=== PATIENT | female | born 1995 | race Caucasian/White ===

== ENCOUNTER 2022-09-14 15:46 | Outpatient (CLI) | payer BC, SELFPAY ==
--- NOTE | 2022-09-14 16:00 | CRLHL7_ITS ---
For Patients: As a result of the Cures Act, medical imaging exams and procedure reports are released immediately into your electronic medical record. You may view this report before your referring provider. If you have questions, please contact your health care provider. INDICATION: First trimester scan, establish dates. COMPARISON: None. TECHNIQUE: Real-time jerez-scale imaging of the pelvis was performed. FINDINGS: Sonographic imaging demonstrates a single living intrauterine gestation, located within the left horn of the endometrial cavity. The embryo demonstrates a regular cardiac rate measuring 166 beats per minute. The embryo`s crown-rump length measurement of 1.7 cm corresponds to a gestational age of 8 weeks 1 day with a sonographic due date of 04/25/2023. There is a normal-appearing yolk sac. There are no gross abnormalities noted within the embryo at this early state of development. The gestational sac has a normal appearance. There is no evidence of a perigestational hemorrhage. A small amount of fluid is present within the right horn of the endometrial cavity. The amount of fluid within the sac appears appropriate for gestational age. The cervix is closed. The myometrium appears normal. The ovaries are of normal size. Corpus luteal cyst left ovary. There are no suspicious fluid collections noted in the cul-de-sac. IMPRESSION: Single living intrauterine with the gestational sac in the left horn of the endometrial cavity measuring 8 weeks 1 day and sonographic due date of 04/25/2023. Small amount of fluid is present within the right endometrial horn. Dictated by Perico Calabrese MD @ 09/15/2022 9:43:45 AM (Electronically Signed)
== END 2022-09-14 15:47 | disposition home or self-care (01) ==
PROVIDERS: Visit Provider Physician Assistant
DX: Z34.91 Encounter for supervision of normal pregnancy, unspecified, first trimester (principal); Z3A.08 8 weeks gestation of pregnancy
CPT/HCPCS: 76817; 85025; 86703; 86803; 86850; 86900; 86901; 87340; 87491; 87591

== ENCOUNTER 2022-09-14 17:23 | Outpatient (CLI) | payer BC, SELFPAY ==
[2022-09-14 18:08] LABS: Basophils Percent Auto 0.2 % (0.0-3.0); Eosinophils Percent Auto 0.8 % (0.0-7.0); Hematocrit 40.4 % (33.0-51.0); Hemoglobin* 13.6 gm/dL (12.0-16.0); Immature Granulocytes Pct Auto 0.3 %; Lymphocytes Percent Auto 17.8 % (20-44); Mean Corpuscular HGB Conc 34 gm/dL (32-36); Mean Corpuscular Hemoglobin 31 pg (26-34); Mean Corpuscular Volume 91 fL (80-100); Monocytes Percent Auto 8.4 % (0.0-11.0); Neutrophils Percent Auto 72.5 % (42.0-72.0); Platelet Count* 335 K/uL (140-440); RDW Coefficient of Variation % 12.6 % (11.5-15.5); Red Blood Count 4.44 m/uL (4.00-5.20); White Blood Count* 13.73 K/uL (4.50-11.00)
[2022-09-14 18:51] LABS: Slide Review Reflex No
[2022-09-14 20:47] LABS: Hepatitis B Surface Antigen* Negative (Negative)
[2022-09-14 20:55] LABS: HIV 1/2/P24 Combo Screen* Negative (Negative)
[2022-09-14 21:05] LABS: Hepatitis C Virus Antibody* Negative (Negative)
[2022-09-14 21:19] LABS: Chlamydia DNA Amplified* NOT DETECTED (No Detected); GC DNA Amplified* NOT DETECTED (No Detected)
[2022-09-17 04:41] LABS: Rapid Plasma Reagin (RPR) Non Reactive (Non Reactive)
[2022-09-17 08:02] LABS: Rubella Antibody IgG 63.4 IU/mL; Varicella-Zoster Virus Ab, IgG 851.7 IV
== END 2022-09-14 17:24 | disposition home or self-care (01) ==
PROVIDERS: Visit Provider Physician Assistant
DX: Z34.91 Encounter for supervision of normal pregnancy, unspecified, first trimester (principal); Z3A.08 8 weeks gestation of pregnancy
CPT/HCPCS: 85025; 86592; 86703; 86762; 86787; 86803; 86850; 86900; 86901; 87086; 87340; 87491; 87591

== ENCOUNTER 2022-10-29 15:25 | Outpatient (CLI) | payer BC, SELFPAY | END 2022-10-29 15:26 | disposition home or self-care (01) | PROVIDERS: Visit Provider Obstetrics & Gynecology | DX: R39.9 Unspecified symptoms and signs involving the genitourinary system (principal) | CPT/HCPCS: 87086 ==

== ENCOUNTER 2022-11-24 16:12 | Outpatient (CLI) | payer BC, SELFPAY | END 2022-11-24 16:13 | disposition home or self-care (01) | LOC: NFLDREF 11-27 10:28 | PROVIDERS: Visit Provider Obstetrics & Gynecology | DX: R39.9 Unspecified symptoms and signs involving the genitourinary system (principal) | CPT/HCPCS: 87086 ==

== ENCOUNTER 2022-12-08 13:58 | Outpatient (CLI) | payer BC, SELFPAY ==
--- NOTE | 2022-12-08 14:00 | CRLHL7_ITS ---
For Patients: As a result of the Century Cures Act, medical imaging exams and procedure reports are released immediately into your electronic medical record. You may view this report before your referring provider. If you have questions, please contact your health care provider. HISTORY: anatomic survey. COMPARISON: None available of this gestation. TECHNIQUE: Ultrasound examination of the is performed with transabdominal technique. FINDINGS: A single intrauterine gestation is seen in cephalic presentation with regular cardiac activity at 144 beats per minute. The placenta is fundal and is free of the cervical os. The placental grade is 0 and the amniotic fluid volume is normal. Single deepest vertical pocket: Normal at 5.2 cm. The cervix is nondilated and normal in length at 3.7 centimeters. BPD: 5.1 cm 21 weeks 3 days HC: 18.6 cm 21 weeks 0 days AC: 15.4 cm 20 weeks 4 days FL: 3.1 cm 19 weeks 4 days The estimated age by ultrasound is 20 weeks 5 days, with an estimated date of delivery of 04/22/2023. This correlates well with the clinical age of 20 weeks 2 days. The ultrasound ratios are normal. The estimated weight of 340 grams is at the 42nd percentile based on the clinical dates. The anatomic survey demonstrates normal appearing intracranial structures with a normal septum pellucidum and normal cerebellum. The nuchal thickness is normal at 4 mm, and the lateral ventricle is normal in diameter at 4 mm. The upper lip, 4 chamber heart, left and right ventricular outflow tracts, diaphragm, stomach, cord insertion site, 3-vessel cord, kidneys, bladder and spine are normal in appearance. IMPRESSION: Single intrauterine gestation in cephalic presentation with regular cardiac activity. Estimated gestational age is 20 weeks 5 days. Dictated by Ton Montelongo MD @ 12/08/2022 8:39:48 PM (Electronically Signed)
== END 2022-12-08 13:59 | disposition home or self-care (01) ==
LOC: US 13:58
PROVIDERS: Visit Provider Obstetrics & Gynecology
DX: Z34.92 Encounter for supervision of normal pregnancy, unspecified, second trimester (principal); Z3A.20 20 weeks gestation of pregnancy
CPT/HCPCS: 76805

== ENCOUNTER 2022-12-14 11:25 | Outpatient (CLI) | payer BC, SELFPAY | END 2022-12-14 11:26 | disposition home or self-care (01) | LOC: NFLDREF 12-15 00:33 | PROVIDERS: Visit Provider Physician Assistant | DX: R35.0 Frequency of micturition (principal); N89.8 Other specified noninflammatory disorders of vagina; N39.0 Urinary tract infection, site not specified | CPT/HCPCS: 87086 ==

== ENCOUNTER 2023-01-18 12:55 | Outpatient (CLI) | payer BC, SELFPAY | END 2023-01-18 12:56 | disposition home or self-care (01) | LOC: NFLDREF 12:56 | PROVIDERS: Visit Provider Obstetrics & Gynecology | DX: R30.0 Dysuria (principal); R35.0 Frequency of micturition | CPT/HCPCS: 87086 ==

== ENCOUNTER 2023-02-08 15:51 | Outpatient (CLI) | payer BC, SELFPAY | END 2023-02-08 15:52 | disposition home or self-care (01) | LOC: NFLDREF 02-10 12:47 | PROVIDERS: Visit Provider Obstetrics & Gynecology | DX: Z34.93 Encounter for supervision of normal pregnancy, unspecified, third trimester (principal); Z3A.29 29 weeks gestation of pregnancy | CPT/HCPCS: 86592 ==

== ENCOUNTER 2023-02-25 17:24 | Outpatient (CLI) | payer BC, SELFPAY ==
[2023-02-25 17:37] VITALS: BP 116/82; PULSE 84; PULSE 92; O2SAT 100
[2023-02-25 17:38] VITALS: BP 116/82; PULSE 76; RESP 16; TEMP 36.6; O2SAT 100
[2023-02-25 17:42] VITALS: PULSE 97; O2SAT 100
--- NOTE | 2023-02-25 17:53 | CRLHL7_ITS ---
For Patients: As a result of the Century Cures Act, medical imaging exams and procedure reports are released immediately into your electronic medical record. You may view this report before your referring provider. If you have questions, please contact your health care provider. CLINICAL HISTORY: Cervical length check TECHNIQUE: Real time jerez scale imaging performed. FINDINGS/impression: Endovaginal imaging demonstrates cervical length measures 4.5 centimeters. Cervix is closed. No funneling. Dictated by Ines Verde MD @ 02/25/2023 8:28:36 PM (Electronically Signed)
[2023-02-25 17:59] LABS: Appearance Urine Cloudy (Clear); Bilirubin Urine Negative (Negative); Blood Urine 3+ (Negative); Color Urine Yellow (Yellow); Glucose Urine Negative (Negative); Ketones Urine Trace (Negative); Leukocyte Esterase Urine 3+ (Negative); Nitrite Urine Negative (Negative); Protein Urine Trace (Negative); Urobilinogen Urine 0.2 (0.2-1.0); pH Urine 7.5 (5.0-8.5)
[2023-02-25] MEDS: LACTATED RINGERS 1000 ML 1,000 ML IV (18:28)
[2023-02-25 18:33] LABS: Bacteria Urine Few; Squamous Epithelial Cell Urine Few (None-Few)
[2023-02-25 18:33] LABS: Trichomonas No Trichomonas Seen (None Seen); Yeast No Yeast Seen (None Seen)
[2023-02-25 18:34] LABS: Clue Cells <20% Clue Cells Seen (None Seen)
[2023-02-25 18:36] LABS: Fetal Fibronectin* Negative (Negative)
[2023-02-25] MEDS: NITROFURANTOIN MONOHYD MACRO 100 MG CAPSULE PO (19:45)
--- NOTE | 2023-02-25 20:06 | PC.OBNST ---
NST Note NST Note Start: 02/25/23 17:30 Freq: ONCE Status: Active Protocol: Document 02/25/23 19:45 LP (Rec: 02/25/23 19:53 LP [id number]) NST Note 1 Para (# of births) 0 EDC 04/25/23 Gestational Age In Weeks & Days 31 Weeks & 4 Days Patient Presented with Complaint(s) of Contractions/cramping, Decreased movement,Pain If Pain, describe location low back pain Other Complaints increased vaginal discharge Reactive Yes Appropriate for Gestational Age Yes MARVA Baig, RN Date 02/25/23 Reactive Yes Appropriate for Gestational Age Yes MARVA Ramírez RN Date 02/25/23 OB NST charge Yes Complete NST Note via Write Note Yes The provider's electronic signature indicates the NST is reactive/appropriate for gestational age. *Note to provider: If an addendum is required, open the patient's chart and click on the note under the Nurse/Allied Health tab.
--- NOTE | 2023-03-21 14:02 | PC.OBNST ---
NST Note NST Note Start: 02/25/23 17:30 Freq: ONCE Status: Discharge Protocol: Document 02/25/23 19:45 LP (Rec: 02/25/23 19:53 LP [id number]) NST Note 1 Para (# of births) 0 EDC 04/25/23 Gestational Age In Weeks & Days 31 Weeks & 4 Days Patient Presented with Complaint(s) of Contractions/cramping, Decreased movement,Pain If Pain, describe location low back pain Other Complaints increased vaginal discharge Reactive Yes Appropriate for Gestational Age Yes MARVA Baig, RN Date 02/25/23 Reactive Yes Appropriate for Gestational Age Yes MARVA Ramírez RN Date 02/25/23 OB NST charge Yes Complete NST Note via Write Note Yes The provider's electronic signature indicates the NST is reactive/appropriate for gestational age. *Note to provider: If an addendum is required, open the patient's chart and click on the note under the Nurse/Allied Health tab.
== END 2023-02-25 19:50 | disposition home or self-care (01) ==
LOC: OB OUT 17:25 → OB 17:26
PROVIDERS: Visit Provider Obstetrics & Gynecology
DX: Z34.90 Encounter for supervision of normal pregnancy, unspecified, unspecified trimester (principal)
CPT/HCPCS: 59025; 76815; 76817; 81003; 81015; 84112; 87086; 87210; 99213; A9270; J7120

== ENCOUNTER 2023-03-22 15:07 | Outpatient (CLI) | payer BC, SELFPAY ==
[2023-03-23 15:29] LABS: Strep B DNA Probe Positive (Negative); Strep B Susceptibility Needed? No
== END 2023-03-22 15:08 | disposition home or self-care (01) ==
LOC: NFLDREF 15:10
PROVIDERS: Visit Provider Obstetrics & Gynecology
DX: Z34.93 Encounter for supervision of normal pregnancy, unspecified, third trimester (principal)
CPT/HCPCS: 87081; 87653

== ENCOUNTER 2023-04-13 11:59 | Inpatient (IN) | payer BC, SELFPAY ==
[2023-04-13] VITALS (28 sets, daily range): BP systolic 98–139; BP diastolic 65–94; PULSE 61–100; RESP 16; TEMP 36.4–37.3; O2SAT 96–100
[2023-04-13 10:07] LABS: Amnisure Rom* Negative
--- NOTE | 2023-04-13 11:20 | P.OBLDTN_ITS ---
OB - Triage/Final Diagnosis Visit Information Time Seen by Provider: 11:00 Narrative: The patient is a 27 year old 1 para 0 at 38w2d gestation by first- trimester ultrasound, who presents with uterine contractions. course is complicated by depression and anxiety, migraine headaches and GERD. Cassie notes onset of regular/painful uterine contractions at 7:30 a.m. this morning. At present they are occurring every 5-7 minutes, rated as 9/10 in severity when sitting but 7-8 when standing. She notes blood tinged discharge this morning, no vandana vaginal bleeding. Small volume leaking noted as well, AmniSure negative. She endorses active movement. She is otherwise in her normal state of health with negative review of systems. Evaluation Cervical dilation (cm): 2 Cervical effacement (%): 50 Laboratory results: Laboratory Tests 04/13/23 Range/Units Unknown Membrane Rupture Negative Vital signs: Vital Signs - 24 hr 04/13/23 10:10 04/13/23 10:11 04/13/23 10:11 Temperature 98.7 F Pulse Rate 94 100 Respiratory Rate 16 Blood Pressure 139/94 H 127/80 Comments: General: Alert and oriented, in no acute distress. Standing at bedside. Psych: Appropriate mood and affect Abdomen: Transabdominal ultrasound performed given nursing report of heart tones higher in the maternal abdomen than expected and inability to palpate head on RN cervical check. Ultrasound confirms complete breech malpresentation. heart tones: Reactive NST. Baseline of 130 beats per minute, moderate variability, accelerations present. No decelerations. [place]: Contractions occurring every 3-6 minutes or so. Final Diagnosis (1) Malpresentation of fetus, antepartum: Status: Acute Problem details: Ms. Alarcon is a 27yo at 38w2d GA seen in triage for rule out labor and question of ROM. course is complicated by depression, anxiety, migraines, Raynaud's, GERD and history of recurrent UTI (none in ). On arrival, she was found to be 2/50/-3 by RN exam with inability to palpate head. Bedside US performed, confirming complete breech malpresentation. We discussed options for management including external cephalic version today versus primary delivery. If she elects to proceed with , we reviewed that we would proceed today if her cervix demonstrates change on repeat evaluation. In the absence of cervical change, we discussed that we would plan for primary delivery at 39 weeks with strict return precautions. The risks and benefits of each option in depth. Pending this discussion, Cassie has decided to proceed with [].
--- NOTE | 2023-04-13 12:13 | P.OBHP_ITS ---
OB - H&P: HPI History of Present Illness Chief complaint: Maternity : 1 Para: 0 Narrative: The patient is a 27 year old 1 para 0 at 38w2d gestation by first- trimester ultrasound, who presents with uterine contractions and rule out rupture. course is complicated by depression and anxiety, migraine headaches and GERD. Cassie notes onset of regular/painful uterine contractions at 7:30 a.m. this morning. At present they are occurring every 5-7 minutes, rated as 9/10 in severity when sitting but 7-8 when standing. They have increased in frequency and severity since their onset. She notes blood tinged discharge this morning, no vandana vaginal bleeding. Singel episode small volume leaking occuring this morning as well, thin/clear fluid after standing up from voiding. No ongoing leaking, AmniSure negative. She endorses active movement. She is otherwise in her normal state of health with negative review of systems. Specific Issues/Plans CGM: My concern is her increased risk for UTIs/pyelo and if we should consider prophylactic antibiotics at a lower daily dose. We should discuss this with patient at her next scheduled visit DISCUSSED 03/08/2023 1. Depression and anxiety * Doing well on fluoxetine 20 mg 2. History of kidney stones. History of lithotripsy and stent placement May 2021 3. Migraines Freq headaches 01/11: Recommend magnesium supplement 4. History of recurrent UTIs ( 5 per year) UTI at approximately 12 weeks, treated [facility] with nitrofurantoin 5. Heartburn Not responding to famotidine BID 01/11: omeprazole 20 mg 02/08: Reported 3 week history of dry cough, worse with lying down. No proceeding or current illness symptoms. Increased omeprazole to 40 mg 6. Labor and delivery eval for cramping and back pain. Concern for possible stone. CGM recommend discussing low-dose prophylactic antibiotics secondary history of kidney stones and recurrent UTIs. Discussed on 03/08/2023. Will start nitrofurantoin 100mg qd 7. GBS positive. * GBS prophylaxis in labor Flu shot: 01/11 Covid: 02/08/23 Tdap: 02/22/23 RSV: 03/08/23 H&P: 04/05/[address] Ratliff History of Present Dating criteria: based on 1st trimester US only care: good care PFSH PFSH Medical History History of kidney stones ?Z87.442 - Personal history of urinary calculi (ICD-10) Absence seizure ?G40.A09 - Absence epileptic syndrome, not intractable, without status epilepticus (ICD-10) Migraine headache ?G43.909 - Migraine, unspecified, not intractable, without status migrainosus (ICD-10) Surgical History History of lithotripsy ?Z98.890 - Other specified postprocedural states (ICD-10) History of ureteroscopy ?Z98.890 - Other specified postprocedural states (ICD-10) Social History Smoking Status: Never smoker Little interest or pleasure in doing things: not at all Feeling down, depressed, or hopeless: not at all Meds Home Medications and Allergies Home Medications Medication Instructions Recorded Confirmed Type docosahexaenoic acid 200 mg mg PO 09/14/22 04/12/23 History capsule ( [facility]HA) sumatriptan succinate 100 mg tablet 100 mg PO ONCE PRN 09/14/22 04/13/23 History Allergies Allergy/AdvReac Type Severity Reaction Status Date / Time No Known Drug Allergies Allergy Verified 04/13/23 10:07 OB - H&P: Exam Physical Exam: Vital signs: Temp Pulse Resp BP 98.7 F 100 16 127/80 04/13/23 10:11 04/13/23 10:11 04/13/23 10:11 04/13/23 10:11 Narrative: General: Alert and oriented, in no acute distress. Standing at bedside. Psych: Appropriate mood and affect Heart: Regular rate and rhythm, no rubs murmurs or gallops Lungs: Clear to posterior auscultation Abdomen: Transabdominal ultrasound performed given nursing report of heart tones higher in the maternal abdomen than expected and inability to palpate head on RN cervical check. Ultrasound confirms complete breech malpresentation. heart tones: Reactive NST. Baseline of 130 beats per minute, moderate variability, accelerations present. No decelerations. [place]: Contractions occurring every 3-6 minutes or so. Sterile vaginal exam: By RN was 2/50/-3 initially, two hour recheck by myself is 3/70/-1. Assessment and Plan Assessment and plan (1) Malpresentation of fetus, antepartum: Problem comment: Ms. Alarcon is a 27yo at 38w2d GA seen in triage for rule out labor and question of ROM. course is complicated by depression, anxiety, migraines, Raynaud's, GERD and history of recurrent UTI (none in ). On arrival, she was found to be 2/50/-3 by RN exam with inability to palpate head. Bedside US performed, confirming complete breech malpresentation. We discussed options for management including external cephalic version today versus primary delivery. If she elects to proceed with , we reviewed that we would proceed today if her cervix demonstrates change on repeat evaluation. In the absence of cervical change, we discussed that we would plan for primary delivery at 39 weeks with strict return precautions. The risks and benefits of each option in depth. Pending this discussion, Cassie has decided to proceed with []. Status: Acute (2) : Status: Acute (3) Nausea and vomiting during : Status: Acute (4) Raynaud phenomenon: Status: Acute (5) Depression with anxiety: Status: Acute (6) Migraine headache: Status: Chronic Plan Ms. Alarcon is a 27yo at 38w2d GA seen in triage for rule out labor and question of ROM. course is complicated by depression, anxiety, migraines, Raynaud's, GERD and history of recurrent UTI (none in ). On arrival, she was found to be 2/50/-3 by RN exam with inability to palpate head. Bedside US performed, confirming complete breech malpresentation. We discussed options for management including external cephalic version today versus primary delivery. If she elects to proceed with , we reviewed that we would proceed today if her cervix demonstrates change on repeat evaluation. In the absence of cervical change, we discussed that we would plan for primary delivery at 39 weeks with strict return precautions. The risks and benefits of each option in depth. Pending this discussion, Cassie has decided to proceed with primary delivery. At 1145 a repeat sterile vag inal exam performed, with demonstrable cervical change to 3/70/-1. Plan to proceed with primary delivery today. Discussion of risks/benefits and alternatives reviewed, where written consent was subsequently obtained. Last PO intake at 0730, discussed my recommendation to proceed with now rather than awaiting NPO status in the setting of spontaneous labor with breech malpresentation. - Primary delivery now - Perioperative ancef and azithromycin - Obtain T/S and Hgb - BT O+, GBS negative
[2023-04-13] MEDS: LACTATED RINGERS 1000 ML 1,000 ML IV (12:23)
[2023-04-13] MEDS: AZITHROMYCIN 500 MG in 0.9 % SODIUM CHLORIDE 250 ml 250 ML 255 MG IVPB (12:27)
[2023-04-13 12:29] LABS: Hematocrit 39.6 % (33.0-51.0); Hemoglobin* 12.9 gm/dL (12.0-16.0); Mean Corpuscular HGB Conc 33 gm/dL (32-36); Mean Corpuscular Hemoglobin 29 pg (26-34); Mean Corpuscular Volume 89 fL (80-100); Platelet Count* 263 K/uL (140-440); Red Blood Count 4.43 m/uL (4.00-5.20); White Blood Count* 14.44 K/uL (4.50-11.00)
[2023-04-13 12:34] LABS: Slide Review Reflex No
[2023-04-13] MEDS: CEFAZOLIN 2 GM INJ IVP (12:49)
--- NOTE | 2023-04-13 12:55 | W.ANESCHARGE ---
Anesthesia Charges Start Date/Time Anesthesia Start Date: 04/13/23 Anesthesia Start Time: 12:43 Stop Date/Time Anesthesia Stop Date: 04/13/23 Anesthesia Stop Time: 14:00 Summary Emergency: MDA
[2023-04-13] MEDS: KETOROLAC 30 MG/ML inj IVP ×2 (13:39→19:52)
--- NOTE | 2023-04-13 13:39 | W.ANESCHARGE ---
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
--- NOTE | 2023-04-13 14:06 | W.PM.NB ---
Nerve Block Nerve Block Time Seen by Provider: 13:45 Date Seen: 04/13/23 Type of block requested by surgeon for post-operative analgesia: TAP Side: bilateral Time out performed: Yes Verification of patient name: Yes Verification of date of : Yes Site marking: site marked Name of person performing procedure: Von Assistants, if any: Abilio Continuous monitoring Was continuous monitoring of O2 sat, B/P, tunnel kiln operator, recorded every 15 minutes?: Yes Procedure Checklist: sterile prep, needles and gloves Ultrasound guided. Images saved: Yes Medications given in 5ml increments after negative aspiration: Marcaine %: 0.25 mL: 30 Needle gauge: 20 and Exparel mL: 10 Patient tolerated procedure well: Yes Additional comments: Needle noted between internal oblique and transversus abdominus. Local spread visualized Block Charges Block Charge (with Pro Fee): TAP Bilateral Use of Ultrasound Machine for Block: Yes- US Guidance/pain block
--- NOTE | 2023-04-13 14:50 | PM.OBPRCCS ---
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 She received cefazolin and azithromycin in preoperative prophylaxis. Spinal anesthesia was administered. Jenkins catheter was inserted. She was prepped and draped in the usual sterile fashion. Anesthesia was tested and found to be adequate. A low-transverse skin incision was made with a scalpel and carried through to the underlying layer of fascia with the scalpel. The subcutaneous fat was dissected off the underlying fascia with Bovie. The fascia was nicked in the midline with a scalpel, and this incision was extended laterally with scissors. The rectus muscles were in the midline. Peritoneum was identified and entered bluntly. Bovie was used to widen this opening laterally. Chao O retractor was inserted and tightened down, providing excellent visualization of the lower uterine segment. The bladder flap was advanced along the lower uterine segment. A bladder flap was created with a combination of sharp and blunt dissection. Low-transverse uterine incision was made with a scalpel. Incision was widened bluntly. The infant's breech was grasped through the hysterotomy and delivered with the help of fundal pressure. The remainder of the body delivered without incident. Loose nuchal cord was noted, delivered through. Cord was clamped and cut after 30 seconds. was handed off to attending nurses. The placenta was delivered with gentle traction on the cord. The uterus was cleaned of all clots and debris with the dry lap pad. 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 The hysterotomy was reapproximated with 0 Vicryl in a running, locked fashion. Second layer of the same suture was used in imbricating fashion to obtain hemostasis. After closure, the uteri were examined in detail where again the left horn was noted to be the gravid uterus with a normal round ligament, fallopian tube and ovary off of it. At the level of the left lower uterine segment, there was an adjacent right nongravid uterus versus rudimentary horn. The right horn was noted to also have an unremarkable round ligament, fallopian tube and ovary. I was unable to establish whether not a cervix was present with the right rudimentary horn at time of surgery. Uterus was reinserted. Excellent hemostasis was noted across hysterotomy and bladder flap. The cul-de-sac and gutters were cleansed with dampened laparotomy sponge, removing any further clots and debris. The Chao O retractor was removed. The hysterotomy was reexamined and found to be hemostatic. The rectus muscles were examined and found to be hemostatic. The fascia was reapproximated with 0 Vicryl in a running fashion. Subcutaneous fat was irrigated and Bovie used on oozing vessels. The skin was closed with a subcuticular stitch of 3-0 Monocryl. Surgical glue was applied above this. Patient tolerated procedure well was taken to recovery area in stable condition. details: Male sex APGARs 8 and 9 at 1 and 5 minutes respectively Condition: stable Disposition: floor
[2023-04-13] MEDS: ONDANSETRON 2 MG/ML inj 4 MG IVP (15:59)
[2023-04-13] MEDS: ACETAMINOPHEN 500 MG TABLET 1000 MG PO (16:01)
[2023-04-13] MEDS: diphenhydrAMINE 50 MG/ML inj 12.5 MG IVP (16:38)
[2023-04-14] VITALS (17 sets, daily range): BP systolic 105–126; BP diastolic 71–79; PULSE 67–94; RESP 16–17; TEMP 36.8–37; O2SAT 96–98
[2023-04-14] MEDS: KETOROLAC 30 MG/ML inj IVP ×4 (01:56→19:58)
[2023-04-14 06:31] LABS: Hemoglobin* 10.1 gm/dL (12.0-16.0)
--- NOTE | 2023-04-14 07:24 | PM.OBPNVD1 ---
OB - PN:Subj Subjective Time Seen by Provider: 07: Date Seen: 04/14/23 Interval history: Cassie is a 27 y.o. who arrived to [facility] in early labor. found to be breech, and decision made to proceed with a .? She had an uncomplicated primary .? ? ? Narrative: The patient feels well.? The pain is fairly well controlled with current medications.? She has no new complaints.? She is exclusively pumping by choice and reports things are going well.? the patient has done well.? Vitals have been stable.? She has remained afebrile.? Has a good appetite, is tolerating a general diet.? She is voiding without difficulty.? She is passing gas and has not had a bowel movement.? She is ambulating and denies any dizziness.? Has Small amount of rubra lochia.? OB - PN: Obj Exam Physical Exam: Vital signs: Temp Pulse Resp BP Pulse Ox O2 Del Method 98.6 F 67 16 115/75 96 Room Air 04/14/23 04:09 04/14/23 04:09 04/14/23 06:00 04/14/23 04:09 04/13/23 23:58 04/14/23 04:09 Narrative: VSS.? Afebrile? GENERAL APPEARANCE:? normal affect, alert, no distress? MOOD:? appropriate? HEENT: normocephalic, neck supple, full ROM? CHEST:? Symmetrical chest wall movement.? Normal respiratory effort.? Clear to auscultation? HEART:? regular rate and rhythm? ABDOMEN:? soft, non-tender. Uterine fundus is firm, 2 below Umbilicus, Midline and is appropriate for the stage of recovery.? Bowel sounds present.? EXTREMITIES:? normal and no edema? SKIN: warm, dry.? Dressing on, clean/dry/intact.? No signs of infection noted.? Urinary Catheter Management: hall: Cath placed during this visit: yes, but has since been removed by the nurse Reason for continuing: surgical procedure Insertion date: 04/13/23 Insertion time: 12:54 Removal date: 04/13/23 Removal time: 20:35 OB - PN: Obj Data Labs Labs: Laboratory Results - last 24 hr 04/13/23 04/13/23 04/13/23 12:17 12:17 Unknown WBC 14.44 H RBC 4.43 Hgb Cancelled 12.9 Hct 39.6 MCV 89 MCH 29 MCHC 33 Plt Count 263 Membrane Rupture Negative Blood Type O Positive Antibody Screen NEGATIVE 04/14/23 06:15 WBC RBC Hgb 10.1 L Hct MCV MCH MCHC Plt Count Membrane Rupture Blood Type Antibody Screen OB - PN: A/P Delivery Assessment and Plan (1) Status post primary low transverse section: Status: Acute (2) Lactating mother: Problem details: exclusively pumping per preference Status: Acute (3) Malpresentation of fetus, antepartum: Status: Acute (4) Raynaud phenomenon: Status: Acute (5) Depression with anxiety: Status: Acute (6) Migraine headache: Status: Chronic Plan Comments: Assessment/Plan? G 1 P 1 status post uncomplicated primary .? ?? 1.? Continue route PP cares? 2.? Exclusively pumping per her preference.? May see if desired. 3.? Anticipate discharge home tomorrow or the following day per pt preference? ?
[2023-04-14] MEDS: DOCUSATE SODIUM 100 MG CAPSULE PO (08:04)
[2023-04-14] MEDS: ACETAMINOPHEN 500 MG TABLET 1000 MG PO ×2 (13:06→21:36)
[2023-04-14] MEDS: SIMETHICONE 80 MG TAB.CHEW PO (13:06)
[2023-04-15 00:52] VITALS: BP 127/85; PULSE 76; RESP 16; TEMP 36.8; O2SAT 99
[2023-04-15] MEDS: IBUPROFEN 600 MG TABLET PO ×2 (00:58→08:10)
[2023-04-15] MEDS: ACETAMINOPHEN 500 MG TABLET 1000 MG PO (04:26)
[2023-04-15 08:00] VITALS: BP 121/82; PULSE 80; RESP 16; TEMP 36.7; O2SAT 97
[2023-04-15] MEDS: DOCUSATE SODIUM 100 MG CAPSULE PO (08:10)
--- NOTE | 2023-04-15 10:14 | P.DS_ITS ---
DS: Providers Provider Date Seen: 04/15/23 Date of admission: 04/13/23 11:59 Primary care physician: Not a Local Provider Admitting Clinician: Tangela Judd MD Attending Physician on discharge: rTacy Tran CNM Date of Discharge: 04/15/23 DS: Diagnosis Discharge Diagnosis (1) care and examination immediately after delivery: Status: Acute (2) Lactating mother: Status: Acute Problem details: exclusively pumping per preference (3) Status post primary low transverse section: Status: Acute Exam Narrative: Exam Narrative: GENERAL APPEARANCE:? normal affect, alert, no distress MOOD:? appropriate CHEST:? clear to auscultation HEART:? regular rate and rhythm ABDOMEN:? soft, non-tender the uterine fundus is At Umbilicus, Midline and is appropriate for the stage of recovery. PERINEUM:? intact EXTREMITIES:? normal and no edema Incision: Healing well, no surrounding erythema, abnormal induration or discharge Const: Vital Signs, click to edit/add: Vital Signs - 24 hr 04/14/23 11:00 04/14/23 12:00 04/14/23 13:01 Temperature 98.3 F Pulse Rate [Pulse Oximeter] 94 Respiratory Rate 16 16 16 Blood Pressure [Ri ght Arm] 105/71 Pulse Oximetry 96 Oxygen Delivery Me thod Room Air 04/14/23 17:59 04/15/23 00:52 04/15/23 08:00 Temperature 98.4 F 98.3 F 98.0 F Pulse Rate [Pulse Oximeter] 84 76 80 Respiratory Rate 16 16 16 Blood Pressure [Ri ght Arm] 113/77 127/85 121/82 Pulse Oximetry 96 99 97 Oxygen Delivery Me thod Room Air Room Air Room Air Documenting provider has reviewed patient's vital signs: yes OB - DS: Summary Hospital Course Hospital Course: Cassie is a 27 y.o. who was admitted to [facility] for labor. ?She had an uncomplicated .?The patient feels well. ?The pain is well controlled with current medications. ?She has no new complaints. ?She is exclusively pumping by her choice and reports things are going well.? the patient has done well.? Vitals have been stable.? She has remained afebrile.? Has a good appetite, is tolerating a general diet. ?She is voiding without difficulty.? She is passing gas and has had a bowel movement.? She is ambulating and denies any dizziness.? Has Small amount of rubra lochia. ?She is planning possibly the Nexplanon for prevention. Peripartum Data delivery method: Primary C/S; Labored Laceration description: None Procedures: Procedures Operation Date: 04/13/23 12:45 Actual Procedure Side Surgeon p Section Tangela Judd MD complications: none Gender: Male Infant Discharge Plan: Home Status at Discharge Functional status at discharge: independent ambulation Overall status at discharge: patient is progressing back to baseline Time Spent with Patient Time attestation: Total time spent providing and/or coordinating discharge services: Time spent: Less than 30 minutes Discharge Plan Discharge Disposition: Home, Self-Care Date of Admission: 04/13/23 11:59 Attending Provider on Discharge: Tracy Tran Primary Care Provider: Provider,Not a Local Condition: Stable Anticipated Discharge Date/Time: 04/15/23 10:00 Discharge Medications: New docusate sodium 100 mg Capsule 100 mg PO DAILY Qty: 90 2RF ibuprofen 600 mg Tablet 600 mg PO Q6H PRN (Reason: Pain) Qty: 60 0RF oxycodone 5 mg Tablet 5 - 10 mg PO Q4H PRN (Reason: Pain) Qty: 10 0RF acetaminophen 500 mg Tablet 1,000 mg PO Q6H PRN (Reason: Pain) Qty: 0 0RF Continued DHA 200 mg capsule PO sumatriptan succinate 100 mg tablet 100 mg PO ONCE PRN omeprazole 40 mg capsule,delayed release(DR/EC) 40 mg PO QDAY Qty: 90 2RF nitrofurantoin macrocrystal 100 mg capsule 100 mg PO QHS Qty: 60 0RF Rx Instructions: must administer with a meal/food Discontinued ondansetron 4 mg tablet,disintegrating 4 mg PO Q6H PRN (Reason: nausea and vomiting) Qty: 30 0RF Discharge Orders: Discharge Order (Routine); Ordered 04/15/23 Ordered By: Tracy Tran Patient Education: OB Over the Counter Medication Information, OB /Breast Feeding Additional Instructions: Discharge instructions were reviewed with the patient including signs and symptoms of infection and home going medications Lifting Restrictions: 20 pounds for 6 weeks No not submerge incision under water X 2 weeks? Nothing vaginally for 6 weeks: no tampons or intercourse Do not drive while taking narcotic pain medication(s) Off Work or School for 6 weeks 2-week visit: incision check, discuss infant feeding concerns, review control options and screen for anxiety/depression. 6-week visit for an annual exam. Follow up Production Planning Supervisor appointment after 6 weeks to assess uterine anomaly further. consultation services are available to all mothers and babies for the first year after delivery.? To make an appointment, please call [phone]. Activity Level: Activity as Tolerated Discharge Diet: Regular Follow Up Appointments: [facility] [Provider Group] Provider,Not a Local [Primary Care Provider] - Forms: Properati Info Instructions
== END 2023-04-15 11:30 | disposition home or self-care (01) | DRG 540 ==
LOC: OB OUT 11:59 → OB 11:59
PROVIDERS: Admitting Provider Obstetrics & Gynecology; Visit Provider Obstetrics & Gynecology
PROC: 10D00Z1 Extraction of Products of Conception, Low, Open Approach (ICD-10-PCS; CPT 59514; principal; 2023-04-13 12:30)
DX: O32.1XX0 Maternal care for breech presentation, not applicable or unspecified (principal); O99.824 Streptococcus B carrier state complicating childbirth; O99.344 Other mental disorders complicating childbirth; F41.8 Other specified anxiety disorders; O26.899 Other specified pregnancy related conditions, unspecified trimester; I73.00 Raynaud's syndrome without gangrene; G43.909 Migraine, unspecified, not intractable, without status migrainosus; R12 Heartburn; G89.18 Other acute postprocedural pain; K21.9 Gastro-esophageal reflux disease without esophagitis; Z87.440 Personal history of urinary (tract) infections; Z87.442 Personal history of urinary calculi; Z3A.38 38 weeks gestation of pregnancy; Z37.0 Single live birth
CPT/HCPCS: 01961; 36415; 59025; 64488; 76942; 81003; 81015; 84112; 85018; 85027; 86850; 86900; 86901; 87086; 99140; G0463; A9270; C9290; J0456; J0665; J0690; J1200; J1885; J2274; J2371; J2405; J2590; J7050; J7120

== ENCOUNTER 2023-05-04 10:32 | Outpatient (CLI) | payer BC, SELFPAY | END 2023-05-04 10:33 | disposition home or self-care (01) | LOC: NFLDREF 05-05 08:19 | PROVIDERS: Visit Provider Registered Nurse | DX: N39.0 Urinary tract infection, site not specified (principal) | CPT/HCPCS: 87086 ==

== ENCOUNTER 2023-05-24 14:58 | Outpatient (CLI) | payer BC, SELFPAY | END 2023-05-24 14:59 | disposition home or self-care (01) | LOC: NFLDREF 14:59 | PROVIDERS: Visit Provider Registered Nurse | DX: R82.90 Unspecified abnormal findings in urine (principal) | CPT/HCPCS: 87086 ==

== ENCOUNTER 2024-02-10 15:19 | Outpatient (CLI) | payer BC, SELFPAY ==
--- NOTE | 2024-02-10 16:00 | CRLHL7_ITS ---
For Patients: As a result of the Century Cures Act, medical imaging exams and procedure reports are released immediately into your electronic medical record. You may view this report before your referring provider. If you have questions, please contact your health care provider. INDICATION: Hematuria. TECHNIQUE: Multidetector-row CT of the abdomen and pelvis was performed without and with administration of intravenous contrast using tailored dose modulation techniques. Contrast images were obtained between the nephrographic and excretory phases. Images were reconstructed in the axial, coronal, and sagittal planes. COMPARISON: None. FINDINGS: Lower Chest: No consolidation or pleural effusions. Liver: No focal lesions. Biliary: No biliary ductal dilatation. Spleen: No splenomegaly or focal lesions. Pancreas: No masses or ductal dilatation. Adrenal Glands: No nodules. Kidneys/Ureters/Bladder: Punctate non-obstructive calyceal stones in the bilateral kidneys, left greater than right, measuring up to 0.4 cm in left lower pole (2:36). Due to the timing of delayed phase contrast CT images, the renal calyces are not fully opacified by contrast, which obscures evaluation of renal papillae and partially obscures evaluation of the calyces. Within these limitations, the renal collecting systems and ureters are symmetrical, normal in caliber, and without evidence of mass or filling defect. No solid renal masses or hydronephrosis. Layering urine on top of excreted contrast in the bladder partially obscures evaluation for intraluminal masses in the anterior bladder. Within these limitations, no bladder mass. Bowel: No distention or wall thickening. Normal appendix. Peritoneum/Retroperitoneum: No masses, pneumoperitoneum, or fluid. Lymph Nodes: No lymphadenopathy. Pelvic Organs: No mass. Vessels: No abdominal aortic aneurysm. Musculoskeletal (Bones/Soft Tissues): No destructive osseous lesions. Mild multilevel degenerative changes in the spine. IMPRESSION: Due to the timing of the delayed phase CT images, the renal papillae are not well assessed. Within these limitations: 1. Multiple punctate nonobstructive stones in the bilateral kidneys. Otherwise, no clear explanation for the patient`s reported hematuria. Please note that all CT scans at this facility use dose modulation, iterative reconstruction, and/or weight-based dosing when appropriate to reduce radiation dose to as low as reasonably achievable. Dictated by Bishop Lawrence MD @ 02/15/2024 1:13:15 PM (Electronically Signed)
== END 2024-02-10 15:20 | disposition home or self-care (01) ==
LOC: CT 15:20
PROVIDERS: PCP Nurse Practitioner Family; Visit Provider Registered Nurse
DX: R31.9 Hematuria, unspecified (principal); N20.0 Calculus of kidney; Q51.818 Other congenital malformations of uterus
CPT/HCPCS: 74178; Q9967

== ENCOUNTER 2024-03-14 15:04 | Outpatient (CLI) | payer BC, SELFPAY ==
--- NOTE | 2024-03-14 15:30 | CRLHL7_ITS ---
For Patients: As a result of the Century Cures Act, medical imaging exams and procedure reports are released immediately into your electronic medical record. You may view this report before your referring provider. If you have questions, please contact your health care provider. INDICATION: Mullerian anomaly discovered during section COMPARISON: Ultrasound 12/08/2022, CT 03/31/2021 and 02/10/2024 TECHNIQUE: Multiplanar, multisequence MR imaging of the pelvis, without IV contrast. The uterine anomaly protocol was utilized. FINDINGS: There is some motion artifact on this exam. Normal appearance of the vaginal canal without septations. There is a single cervix that has a normal morphology. The uterus is anteverted and deviates into the left side of the pelvis. The uterus measures 3.0 x 4.6 x 6.2 cm. There is a normal appearance of the myometrium and junctional zone. Normal appearance of the endometrium. The endometrial thickness is 1 centimeter. section incision is as expected. There is a slightly larger appearing right side broad ligament (see series 2, image 16). No rudimentary horn identified. Normal bilateral ovaries. No ascites. No adenopathy. Normal urinary bladder. Ureters not dilated. No dilated or inflamed bowel field of view. Normal noncontrast appearance of the pelvic vasculature. No acute or worrisome osseous findings. 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 Dictated by Maritza Hernandez MD @ 03/16/2024 8:12:55 AM (Electronically Signed)
== END 2024-03-14 15:05 | disposition home or self-care (01) ==
PROVIDERS: PCP Nurse Practitioner Family; Visit Provider Registered Nurse
DX: Q51.818 Other congenital malformations of uterus (principal)
CPT/HCPCS: 72195

== ENCOUNTER 2024-08-28 16:14 | Outpatient (CLI) | payer BC, SELFPAY | END 2024-08-28 16:15 | disposition home or self-care (01) | LOC: NFLDREF 08-31 13:39 | PROVIDERS: PCP Nurse Practitioner Family; Referring Provider Nurse Practitioner Family; Visit Provider Registered Nurse | DX: R35.0 Frequency of micturition (principal) | CPT/HCPCS: 87086 ==